=== PATIENT | male | born 1965 | race Caucasian/White ===

== ENCOUNTER 2017-11-04 15:04 | Emergency (ER) | payer OTHER ==
[2017-11-04] MEDS ORDERED: KETOROLAC 30 MG/ML 1 ML VIAL IM STA (16:33)
--- NOTE | 2017-11-04 17:26 | ED ---
General Adult HPI - General Chief complaint: Extremity Problem,Nontraumatic Stated complaint: Left side arm & leg pain Time Seen by Provider: 11/04/17 16:08 Source: patient Mode of arrival: ambulatory Limitations: no limitations - History of Present Illness Initial comments: Saulo Chau is a 51-year-old male who presents to the emergency department today for evaluation of left calf pain. 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 He reports he frequently has aches and pains throughout his body. He reports that this morning he woke in had an aching pain deep in his calf of his left leg, reports he tried walking around and went to work however the pain persisted which prompted him to come to the emergency department for evaluation. Patient believes his mother had a history of blood clots though he is not certain, and he is not certain if she had any clotting disorder. Patient is a current every day smoker. Patient denies any injury to the leg or new exercise or any excessive exertion. He denies any chest pain, shortness of breath or - Related Data Home Medications Medication Instructions Recorded Confirmed No Known Home Medications [No 11/04/17 11/04/17 Known Home Medications] Allergies Allergy/AdvReac Type Severity Reaction Status Date / Time No Known Allergies Allergy Verified 11/04/17 16:19 Review of Systems ROS Statement: Those systems with pertinent positive or pertinent negative responses have been documented in the HPI. ROS Other: All systems not noted in ROS Statement are negative. Past Medical History Past Medical History: Hypertension History of Any Multi-Drug Resistant Organisms: None Reported Past Surgical History: Orthopedic Surgery Past Psychological History: No Psychological Hx Reported Smoking Status: Current every day smoker Past Alcohol Use History: Occasional Past Drug Use History: None Reported General Exam Limitations: no limitations General appearance: alert, in no apparent distress Head exam: Present: atraumatic, normocephalic Eye exam: Present: normal appearance, PERRL ENT exam: Present: normal exam Neck exam: Present: normal inspection Respiratory exam: Present: normal lung sounds bilaterally. Absent: respiratory distress, wheezes, rales, rhonchi, stridor, chest wall tenderness, accessory muscle use, decreased breath sounds, prolonged expiratory Cardiovascular Exam: Present: regular rate, normal heart sounds. Absent: tachycardia, systolic murmur, diastolic murmur GI/Abdominal exam: Present: soft. Absent: distended Rectal exam: Present: deferred Extremities exam: Present: pedal edema, calf tenderness, other (Large varicose veins bilateral lower extremities) Back exam: Present: normal inspection Neurological exam: Present: alert, oriented X3 Psychiatric exam: Present: normal affect, normal mood Skin exam: Present: warm, dry, intact, normal color. Absent: cyanosis Course Vital Signs 11/04/17 11/04/17 15:13 19:09 Temperature 98.1 F 98.5 F Pulse Rate 102 H 98 Respiratory 20 16 Rate Blood Pressure 187/111 168/78 O2 Sat by Pulse 96 100 Oximetry Medical Decision Making - Medical Decision Making patient was seen and evaluated, history was obtained from the patient Patient experiencing cramping pain in his left calf and feels that it may be swollen, patient does have very large varicose veins on this leg and is concerned that he may have a blood clot In addition patient states that he didn't work today he needs a work note Venous Doppler was ordered to evaluate for possible DVT IM Toradol was ordered for discomfort Venous Doppler without evidence of DVT Patient ambulatory throughout the emergency department without any complications or complaints Results of the DVT study were discussed with patient who expresses reliefthat there is no DVT, at this time he is comfortable with the plan for discharge home. I advised the patient to maintain oral hydration, stretching and follow-up with his primary care physician for reevaluation. Patient requesting a work note for tomorrow. Work note was provided and the patient was discharged home in stable condition. Disposition Clinical Impression: Leg cramping Disposition: HOME SELF-CARE Condition: Good Instructions: Leg Cramps (ED), Muscle Cramp (ED) Referrals: Paul Ghosh MD [Primary Care Provider] - 1-2 days Time of Disposition: 18:32
--- NOTE | 2017-11-04 18:07 | US ---
EXAMINATION TYPE: US venous doppler duplex LE BI DATE OF EXAM: 11/04/2017 5:56 PM COMPARISON: NONE CLINICAL HISTORY: Pain. bilateral leg pain SIDE PERFORMED: TECHNIQUE: The lower extremity deep venous system is examined utilizing real time linear array sonog pili with graded compression, doppler sonography and color-flow sonography. VESSELS IMAGED: External Iliac Vein (EIV) Common Femoral Vein Deep Femoral Vein Greater Saphenous Vein * Femoral Vein Popliteal Vein Small Saphenous Vein * Proximal Calf Veins (* superficial vessels) Right Leg: Negative for DVT Left Leg: Negative for DVT Grayscale, color doppler, spectral doppler imaging performed of the deep veins of the bilateral lower extremities. There is normal flow, compressibility, vascular waveforms. IMPRESSION: No evidence of acute DVT in either lower extremity.
[2017-11-04 19:11] VITALS: BP 168/78; PULSE 98; RESP 16; TEMP 98.5
== END 2017-11-04 19:10 | disposition home or self-care (01) ==
LOC: EC 15:04
DX: I83.92 Asymptomatic varicose veins of left lower extremity (principal); F17.200 Nicotine dependence, unspecified, uncomplicated
CPT/HCPCS: 99283; 96372; 93970; J1885

== ENCOUNTER 2017-11-06 12:54 | Inpatient (IN) | payer OTHER ==
[2017-11-06] MEDS ORDERED: SODIUM CHLORIDE 0.9% 1,000 ML IV STA (13:16)
[2017-11-06] MEDS ORDERED: SODIUM CHLORIDE 0.9% 500 ML IV STA (13:21)
--- NOTE | 2017-11-06 13:21 | ED ---
Neuro HPI - General Chief Complaint: Neuro Symptoms/Deficit Stated Complaint: Lt sided weakness Time Seen by Provider: 11/06/17 13:10 Source: patient, family, RN notes reviewed Mode of arrival: wheelchair Limitations: physical limitation - History of Present Illness Is the patient presenting with stroke symptoms?: Yes Last Known Well Date: 11/05/17 Initial Comments: This is a 51-year-old male who presents with complaints of left facial droop and left arm weakness and started sometime last night. Per his friend with him he wanted taken to the hospitalist the patient did not want to go. The patient was seen 3 days ago emergency department and thought to have a DVT which apparently was negative he did has some left leg weakness per the patient. It is unclear when this exactly started. No fevers chills nausea vomiting sweats patient has no prior history of strokes he is a smoker. No trauma is reported. - Related Data Home Medications: Home Medications Medication Instructions Recorded Confirmed Acetaminophen [Tylenol Extra 500 - 1,000 mg PO Q6H PRN 11/06/17 11/06/17 Strength] Allergies/Adverse Reactions: Allergies Allergy/AdvReac Type Severity Reaction Status Date / Time No Known Allergies Allergy Verified 11/06/17 13:15 Review of Systems ROS Statement: Those systems with pertinent positive or pertinent negative responses have been documented in the HPI. ROS Other: All systems not noted in ROS Statement are negative. General Exam - General Exam Comments Initial Comments: This is a well-developed well-nourished awake alert oriented 3 male Limitations: physical limitation General appearance: alert, other (There is obvious left facial asymmetry with forehead sparing.) Head exam: Present: atraumatic, normocephalic. Absent: normal inspection Eye exam: Present: normal appearance, PERRL, EOMI. Absent: scleral icterus, conjunctival injection, periorbital swelling ENT exam: Present: other (As above) Neck exam: Present: normal inspection, full ROM, other (No stridor JVD or bruits ). Absent: tenderness, meningismus, lymphadenopathy Respiratory exam: Present: normal lung sounds bilaterally. Absent: respiratory distress, wheezes, rales, rhonchi, stridor Cardiovascular Exam: Present: normal rhythm, tachycardia, normal heart sounds. Absent: systolic murmur, diastolic murmur, rubs, gallop, clicks GI/Abdominal exam: Present: soft, normal bowel sounds. Absent: distended, tenderness, guarding, rebound, rigid Rectal exam: Present: deferred Extremities exam: Present: normal capillary refill, other (Left upper extremity is flaccid patient is able move the left lower extremity that is weaker than the right). Absent: full ROM Back exam: Present: normal inspection Neurological exam: Present: alert, oriented X3, motor sensory deficit. Absent: CN II-XII intact Psychiatric exam: Present: normal affect, normal mood Skin exam: Present: warm, dry, intact, normal color. Absent: rash Stroke MDM - Lab Data Result diagrams: 11/06/17 13:11 11/06/17 13:11 Lab Results 11/06/17 11/06/17 11/06/17 Range/Units 13:11 13:11 13:11 WBC 7.2 (3.8-10.6) k/uL RBC 5.49 (4.30-5.90) m/uL Hgb 16.9 (13.0-17.5) gm/dL Hct 51.8 (39.0-53.0) % MCV 94.3 (80.0-100.0) fL MCH 30.7 (25.0-35.0) pg MCHC 32.6 (31.0-37.0) g/dL RDW 12.9 (11.5-15.5) % Plt Count 261 (150-450) k/uL Neutrophils % 69 % Lymphocytes % 19 % Monocytes % 7 % Eosinophils % 1 % Basophils % 1 % Neutrophils # 4.9 (1.3-7.7) k/uL Lymphocytes # 1.3 (1.0-4.8) k/uL Monocytes # 0.5 (0-1.0) k/uL Eosinophils # 0.1 (0-0.7) k/uL Basophils # 0.1 (0-0.2) k/uL PT (9.0-12.0) sec INR (<1.2) APTT (22.0-30.0) sec Sodium 137 (137-145) mmol/L Potassium 4.8 (3.5-5.1) mmol/L Chloride 99 (98-107) mmol/L Carbon Dioxide 26 (22-30) mmol/L Anion Gap 12 mmol/L BUN 13 (9-20) mg/dL Creatinine 0.98 (0.66-1.25) mg/dL Est GFR (MDRD) Af Amer >60 (>60 ml/min/1.73 sqM) Est GFR (MDRD) Non-Af >60 (>60 ml/min/1.73 sqM) Glucose 101 H (74-99) mg/dL POC Glucose (mg/dL) (75-99) mg/dL POC Glu Environmental Adviser ID Calcium 10.6 H (8.4-10.2) mg/dL Total Bilirubin 1.1 (0.2-1.3) mg/dL AST 35 (17-59) U/L ALT 39 (21-72) U/L Alkaline Phosphatase 81 (38-126) U/L Total Creatine Kinase 427 H (55-170) U/L CK-MB (CK-2) 2.6 H* (0.0-2.4) ng/mL CK-MB (CK-2) Rel Index 0.6 Troponin I <0.012 (0.000-0.034) ng/mL Total Protein 7.6 (6.3-8.2) g/dL Albumin 4.8 (3.5-5.0) g/dL 11/06/17 11/06/17 Range/Units 13:11 13:26 WBC (3.8-10.6) k/uL RBC (4.30-5.90) m/uL Hgb (13.0-17.5) gm/dL Hct (39.0-53.0) % MCV (80.0-100.0) fL MCH (25.0-35.0) pg MCHC (31.0-37.0) g/dL RDW (11.5-15.5) % Plt Count (150-450) k/uL Neutrophils % % Lymphocytes % % Monocytes % % Eosinophils % % Basophils % % Neutrophils # (1.3-7.7) k/uL Lymphocytes # (1.0-4.8) k/uL Monocytes # (0-1.0) k/uL Eosinophils # (0-0.7) k/uL Basophils # (0-0.2) k/uL PT 10.5 (9.0-12.0) sec INR 1.1 (<1.2) APTT 25.1 (22.0-30.0) sec Sodium (137-145) mmol/L Potassium (3.5-5.1) mmol/L Chloride (98-107) mmol/L Carbon Dioxide (22-30) mmol/L Anion Gap mmol/L BUN (9-20) mg/dL Creatinine (0.66-1.25) mg/dL Est GFR (MDRD) Af Amer (>60 ml/min/1.73 sqM) Est GFR (MDRD) Non-Af (>60 ml/min/1.73 sqM) Glucose (74-99) mg/dL POC Glucose (mg/dL) 96 (75-99) mg/dL POC Glu Environmental Adviser ID Carmen Reagan Calcium (8.4-10.2) mg/dL Total Bilirubin (0.2-1.3) mg/dL AST (17-59) U/L ALT (21-72) U/L Alkaline Phosphatase (38-126) U/L Total Creatine Kinase (55-170) U/L CK-MB (CK-2) (0.0-2.4) ng/mL CK-MB (CK-2) Rel Index Troponin I (0.000-0.034) ng/mL Total Protein (6.3-8.2) g/dL Albumin (3.5-5.0) g/dL - NIH Stroke Scale 1a. Level of Consciousness: (0) alert 1b. LOC Questions: (0) answers correctly 1c. LOC Commands: (0) performs tasks correctly 2. Best Gaze: (0) normal 3. Visual: (0) no visual loss 4. Facial Palsy: (2) partial paralysis 5a. Motor Arm Left: (4) no movement 5b. Motor Arm Right: (0) no drift 6a. Motor Leg Left: (2) some gravity effort 6b. Motor Leg Right: (0) no drift 7. Limb Ataxia: (0) absent 8. Sensory: (0) normal 9. Best Language: (0) no aphasia 11. Extinction/Inattention: (0) no abnormality - Thrombolytic Inclusion/Exclusion Thrombolytic Exclusion Criteria: Symptom Onset > 3 Hours - Medical Decision Making I did reevaluate patient several occasions he demonstrates no improvement further deficits. I did discuss the case with Dr. Whitehead who is covering Dr. Ghosh. The patient will be admitted for evaluation by neurology. - EKG Data -: EKG Interpreted by [facility] EKG shows normal: sinus rhythm (Sinus tachycardia rate 114. Interval 160 QRS of 86 daily since QTC 332/457 possible left atrial enlargement.) Past Medical History Past Medical History: Hypertension History of Any Multi-Drug Resistant Organisms: None Reported Past Surgical History: Orthopedic Surgery Past Psychological History: No Psychological Hx Reported Smoking Status: Current every day smoker Past Alcohol Use History: Occasional Past Drug Use History: None Reported Course Vital Signs 11/06/17 11/06/17 11/06/17 13:00 13:10 13:25 Temperature 98.1 F Pulse Rate 130 H 102 H 102 H Respiratory 20 16 16 Rate Blood Pressure 200/117 165/112 191/114 O2 Sat by Pulse 99 95 95 Oximetry 11/06/17 11/06/17 11/06/17 13:40 13:55 14:25 Temperature Pulse Rate 100 90 84 Respiratory 16 16 16 Rate Blood Pressure 169/98 156/101 169/104 O2 Sat by Pulse 100 98 98 Oximetry 11/06/17 11/06/17 11/06/17 14:55 15:25 16:01 Temperature Pulse Rate 82 80 82 Respiratory 16 16 16 Rate Blood Pressure 149/99 158/100 167/104 O2 Sat by Pulse 98 97 97 Oximetry - Reevaluation(s) Reevaluation #1: 11/06/17 16:13 Reevaluation the patient return from CAT scan revealed no change in his status. He still is awake alert oriented 3 no improvement in his function. Critical Care Time Critical Care Time: Yes Critical Care Time: 31 minutes includes initial presentation with history physical labs x-rays review of old charting several reevaluation the patient. Discussed with the patient family regarding findings discussed with the main physician admission orders and documentation of the above. Disposition Clinical Impression: Cerebrovascular accident Disposition: ADMITTED IP TO THIS [facility] Condition: Stable Referrals: Paul Ghosh MD [Primary Care Provider] - 1-2 days
[2017-11-06 13:27] LABS: Glucose,Whole Blood 96 mg/dL (75-99)
[2017-11-06 13:41] LABS: Basophils # (A) 0.1 k/uL (0-0.2); Basophils % (A) 1 %; Eosinophils # (A) 0.1 k/uL (0-0.7); Eosinophils % (A) 1 %; HCT 51.8 % (39.0-53.0); HGB 16.9 gm/dL (13.0-17.5); Lymphocytes # (A) 1.3 k/uL (1.0-4.8); Lymphocytes % (A) 19 %; MCH 30.7 pg (25.0-35.0); MCHC 32.6 g/dL (31.0-37.0); MCV 94.3 fL (80.0-100.0); Mean Platelet Volume 7.4; Monocytes # (A) 0.5 k/uL (0-1.0); Monocytes % (A) 7 %; Neutrophils # (A) 4.9 k/uL (1.3-7.7); Neutrophils % (A) 69 %; Platelet Count 261 k/uL (150-450); RBC 5.49 m/uL (4.30-5.90); RDW 12.9 % (11.5-15.5); WBC 7.2 k/uL (3.8-10.6)
[2017-11-06 13:46] LABS: INR 1.1 (<1.2); Partial Thromboplastin Time 25.1 sec (22.0-30.0); Prothrombin Time 10.5 sec (9.0-12.0)
[2017-11-06 13:47] LABS: ALT 39 U/L (21-72); AST 35 U/L (17-59); Albumin 4.8 g/dL (3.5-5.0); Alkaline Phosphatase 81 U/L (38-126); Anion Gap 12 mmol/L; Blood Urea Nitrogen 13 mg/dL (9-20); Calcium 10.6 mg/dL (8.4-10.2); Carbon Dioxide 26 mmol/L (22-30); Chloride 99 mmol/L (98-107); Glucose 101 mg/dL (74-99); Potassium 4.8 mmol/L (3.5-5.1); Sodium 137 mmol/L (137-145); Total Bilirubin 1.1 mg/dL (0.2-1.3); Total Protein 7.6 g/dL (6.3-8.2)
--- NOTE | 2017-11-06 13:51 | CT ---
EXAMINATION TYPE: CT brain wo con DATE OF EXAM: 11/06/2017 COMPARISON: NONE HISTORY: Lt side weakness CT DLP: 1036 mGycm Automated exposure control for dose reduction was used. FINDINGS: There is a area of lucency appearing 12 mm in the right thalamus. This may be an evolving infarct. No other focal lesions are seen. There is no mass effect, midline shift or intracranial blood. The orbits are normal. Visualized portions of the paranasal sinuses and mastoids are clear. IMPRESSION: PROBABLE SUBACUTE RIGHT THALAMIC INFARCT. SHORT-TERM FOLLOW-UP WOULD BE RECOMMENDED.
--- NOTE | 2017-11-06 13:52 | XR ---
EXAMINATION TYPE: XR chest 2V DATE OF EXAM: 11/06/2017 HISTORY: altered mental status. REFERENCE: Previous study dated 04/16/2015. FINDINGS: Lung volumes are prominent. The lungs are clear. Pleural spaces are clear. The heart is not enlarged. IMPRESSION: PLEASE CORRELATE FOR COPD.
[2017-11-06 14:05] LABS: Creatine Kinase 427 U/L (55-170)
[2017-11-06 14:17] LABS: Creatine Kinase MB 2.6 ng/mL (0.0-2.4); Troponin I <0.012 ng/mL (0.000-0.034)
[2017-11-06] MEDS ORDERED: ASPIRIN 325 MG TAB PO STA (16:25)
[2017-11-06] MEDS ORDERED: NICOTINE 21MG/24HR PATCH TRANSDERM STA (16:27)
[2017-11-06] MEDS ORDERED: SODIUM CHLORIDE 0.9% 1,000 ML IV SCH (16:30)
[2017-11-06] MEDS ORDERED: cloNIDine HCL 0.1 MG TAB PO STA (17:09)
--- NOTE | 2017-11-06 20:08 | P.HPIM ---
History of Present Illness Chief complaint Left-sided weakness History of present illness The patient is a 51 year old patient of Dr. Ghosh for whom I am covering. The patient presented today to the emergency room earlier today with complaints of left facial left arm and left leg weakness. Patient states that on , 2 days previous he noted numbness and tingling in his left foot also associated with some pain and weakness. Apparently that weakness progressed yesterday. Then yesterday he noticed left arm being numb and weak along with left facial weakness and was brought to the emergency room apparently by a friend. The patient denies any recent trauma or head injury. States he's never had symptoms like this in the past. States other than and what was mentioned that he generally has been feeling good. He does admit to drinking about 12 beers a day. Patient also has history of smoking. He also states there is a history of hypertension but he has run out of his medications. Apparently he did see Dr. Ghosh last year for a physical. Past medical history As mentioned above there appears to be a history of hypertension but patient has run out of his medications. Apparently he has had fractures of his ankles in the past that have been repaired. No known ALLERGIES He is not taking any regular medications and uses extra strength Tylenol for pain. Review of systems Patient denies any visual changes or headaches. No fever or chills or cough. No chest pain. No nausea or vomiting. No urinary or bowel symptoms. No hematuria or hematochezia. No unusual edema. Social history Patient does smoke 1-1/2 packs per day for many years. States he also drinks about 12 beers a day. Apparently he had a beer yesterday but not today. States he has never had shakes or tremors when stopping alcohol. 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 Family history Apparently mother of stroke and heart attack in her 80s. He states his father is still alive but he has not seen him much. States he has a sister that had coronary artery bypass. Physical examination Patient is in the emergency room lying on the stretcher. Easily arousable and pleasant. Does not appear to be in any acute distress. Temperature was 98. Pulse was 76 with respirations 16 and blood pressure 147/ 99. O2 saturation was 97 on 2 L nasal cannula. Head and neck exam revealed it to be atraumatic. Neck supple. Extraocular movements were intact. Neck is supple without carotid bruits or adenopathy or thyromegaly detected. Lungs are clear to auscultation. Heart tones were regular without murmurs or rubs appreciated. Abdomen is soft. Nontender. No organomegaly. No masses. Scrotal and rectal exam deferred. Neurologic exam reveals him to be alert and pleasant. He does have left facial weakness. He does have a very slight content analyst on the left but markedly diminished. Also weakness in extensors of the upper extremities. Lower extremities he is able to lift his leg off the bed but dorsi and plantarflexion of the foot are both extremely weak. Laboratory White count 7.2 with a hemoglobin 16.9 and a platelet count of 261 INR is 1.1 with a PTT of 25 Sodium 137 with a potassium 4.8 CO2 content of 26. Blood sugar 101 Calcium was 10.6. CK was elevated at 427 with a CK-MB of 2.6. Troponin though was less than 0.012. Albumin 4.8 EKG showed a sinus tachycardia. No definite ischemic changes noted. Possible left atrial enlargement. Chest x-ray showed some prominent lung volumes consistent with COPD but no other acute changes. Computed tomography scan of the brain without contrast showed an area of lucency a little over 1 cm in the right thalamus. Likely a subacute right thalamic infarct. Impressions 1. Acute CVA with right thalamic subacute infarct. Associated with left sided hemiplegia. No evidence of hemorrhage. 2. Possible history of hypertension with patient noncompliant with medications. 3. Possible rhabdomyolysis with elevated CK values. 4. Tobacco use disorder 5. Alcohol use disorder Plans Patient will be started on aspirin for antiplatelet therapy. He is to be monitored and blood pressure to be controlled. Bedside swallowing evaluation to be done. Consultation with neurology. Patient to have lipid panel performed tomorrow morning. Carotid vascular studies and echocardiogram. Physical and occupational therapy consultations. Further recommendations and treatment pending clinical response and results of above. Follow-up CPK values. Benzodiazepines available for possible development of DTs. Use of nicotine transdermal patches. Smoking cessation and alcohol cessation encouraged. Past Medical History Past Medical History: Hypertension History of Any Multi-Drug Resistant Organisms: None Reported Past Surgical History: Orthopedic Surgery Past Psychological History: No Psychological Hx Reported Smoking Status: Current every day smoker Past Alcohol Use History: Occasional Past Drug Use History: None Reported Medications and Allergies Home Medications Medication Instructions Recorded Confirmed Type Acetaminophen [Tylenol Extra 500 - 1,000 mg PO Q6H PRN 11/06/17 11/06/17 History Strength] Allergies Allergy/AdvReac Type Severity Reaction Status Date / Time No Known Allergies Allergy Verified 11/06/17 13:15 Physical Exam Vitals: Vital Signs Temp Pulse Resp BP Pulse Ox 11/06/17 18:22 76 16 147/99 97 11/06/17 17:50 78 16 159/101 98 11/06/17 16:55 76 16 156/98 98 11/06/17 16:01 82 16 167/104 97 11/06/17 15:55 82 16 167/104 97 11/06/17 15:25 80 16 158/100 97 11/06/17 14:55 82 16 149/99 98 11/06/17 14:25 84 16 169/104 98 11/06/17 13:55 90 16 156/101 98 11/06/17 13:40 100 16 169/98 100 11/06/17 13:25 102 H 16 191/114 95 11/06/17 13:10 102 H 16 165/112 95 11/06/17 13:00 98.1 F 130 H 20 200/117 99 Intake and Output 11/06/17 11/06/17 11/06/17 06:59 14:59 22:59 Other: Weight 74.843 kg Patient Weight 11/07/17 06:59 Weight 74.843 kg Results CBC & Chem 7: 11/06/17 13:11 11/06/17 13:11 Labs: Abnormal Lab Results - Last 24 Hours (Table) 11/06/17 11/06/17 Range/Units 13:11 13:11 Glucose 101 H (74-99) mg/dL Calcium 10.6 H (8.4-10.2) mg/dL Total Creatine Kinase 427 H (55-170) U/L CK-MB (CK-2) 2.6 H* (0.0-2.4) ng/mL
[2017-11-06] MEDS ORDERED: LORazepam 0.5 MG TAB PO PRN (20:45)
[2017-11-06] MEDS ORDERED: ACETAMINOPHEN TAB 325 MG TAB PO PRN (20:47)
[2017-11-06] MEDS: SODIUM CHLORIDE 0.9% 1,000 ML IV SCH (21:10)
[2017-11-06 21:23] VITALS: BMI 21.4
[2017-11-07 07:31] LABS: Anion Gap 10 mmol/L; Blood Urea Nitrogen 14 mg/dL (9-20); Calcium 9.8 mg/dL (8.4-10.2); Carbon Dioxide 28 mmol/L (22-30); Chloride 101 mmol/L (98-107); Cholesterol 216 mg/dL (<200); Creatine Kinase 258 U/L (55-170); Glucose 88 mg/dL (74-99); HDL Cholesterol 47 mg/dL (40-60); LDL Cholesterol,Calculated 134 mg/dL (0-99); Potassium 4.6 mmol/L (3.5-5.1); Sodium 139 mmol/L (137-145); Triglycerides 177 mg/dL (<150)
[2017-11-07] MEDS: ASPIRIN 325 MG TAB PO SCH (08:25)
--- NOTE | 2017-11-07 10:24 | P.PN ---
Progress Note - Text The patient is a 51-year-old patient of Dr. Ghosh for whom I am covering and who presented yesterday to the emergency room with left-sided weakness. Patient was found on CAT scan to have a right thalamic infarct. The patient did admit on presentation that he was not taking his blood pressure medication as previously ordered by Dr. Ghosh. The patient is sitting up in bed. Alert. Pleasant in no acute distress. Denies any unusual pain. Vital signs reveal a temperature of 97.1 with a pulse of 81 and respirations 16. Blood pressure is 149/98 and he is 96% saturated on room air. Lung and heart examination is clear and regular. Abdomen is nontender. No unusual edema. 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 Laboratory Basic metabolic panel is essentially unremarkable. CK value is 258 which is improved from admission. Total cholesterol was 216 with a LDL cholesterol 134 and triglycerides of 177 and HDL of 47 Impressions Acute CVA of the right thalamus with left-sided hemiplegia. The patient does have relative high use of alcohol but is not demonstrating any definite signs of DTs at this time. Plans Patient will be evaluated by neurology. Consultation with physical and occupational therapy. Carotid Doppler and echocardiogram to also be done. Continue with aspirin therapy. We will begin atorvastatin. Dr. Ghosh to resume care tomorrow.
--- NOTE | 2017-11-07 11:18 | US ---
EXAMINATION TYPE: US carotid duplex BILAT DATE OF EXAM: 11/07/2017 COMPARISON: NONE CLINICAL HISTORY: CVA, with left side hemiplegia.. EXAM MEASUREMENTS: RIGHT: Peak Systolic Velocity (PSV) cm/sec ----- Right CCA: 66.9 ----- Right ICA: 80.1 ----- Right ECA: 87.8 ICA/CCA ratio: 1.2 RIGHT: End Diastole cm/sec ----- Right CCA: 20.8 ----- Right ICA: 34.0 ----- Right ECA: 15.3 LEFT: Peak Systolic Velocity (PSV) cm/sec ----- Left CCA: 79.0 ----- Left ICA: 64.7 ----- Left ECA: 81.2 ICA/CCA ratio: 0.8 LEFT: End Diastole cm/sec ----- Left CCA: 26.3 ----- Left ICA: 23.0 ----- Left ECA: 14.2 VERTEBRALS (direction of flow): Right Vertebral: Antegrade Left Vertebral: Antegrade Rhythm: Normal No significant stenosis seen, mild bilateral plaque noted. IMPRESSION: I DO NOT SEE EVIDENCE OF A HEMODYNAMICALLY SIGNIFICANT STENOSIS IN EITHER CAROTID SYSTEM. Criteria for Assigning % of Stenosis / Diameter reduction (Estimation based on the indirect measurements of the internal carotid artery velocities (ICA PSV). 1. Normal (no stenosis)=ICA PSV < 125 cm/s: ratio < 2.0: ICA EDV<40 cm/s. 2. Less than 50% stenosis=ICA PSV < 125 cm/s: ratio < 2.0: ICA EDV<40 cm/s. 3. 50 to 69% stenosis=ICA PSV of 125 to 230 cm/s: ration 2.0 ? 4.0: ICA EDV 40-100 cm/s. 4. Greater than 70% stenosis to near occlusion= ICA PSV > 230 cm/s: ratio > 4.0: ICA EDV > 100 cm/s. 5. Near occlusion= ICA PSV velocities may be low or undetectable: variable ratio and ICA EDV. 6. Total occlusion=unable to detect flow.
[2017-11-07 11:59] LABS: Glucose,Whole Blood 96 mg/dL (75-99)
--- NOTE | 2017-11-07 12:50 | P.CNNES ---
History of Present Illness Consult date: 11/07/17 History of Present Illness: The patient is a 51-year-old right-handed white male who states that morning he went to work and started getting lightheaded. His left leg felt weak. He developed pain in the left calf and sole of the foot region. He thought he may have had a blood clot. His boss drove him to the emergency room. He was evaluated at [facility] emergency room for cramping pain in the left leg. He had a venous Doppler of both legs which did not demonstrate any clot. He reported at that time that when he tried walking around the pain persisted which prompted him to go to the ER. He was released from the ER with clinical impression of leg cramps and referred to see his primary care physician within 1-2 days. The patient reports that the following day he felt sometime in the afternoon his left arm became paralyzed. Initially the patient reported that he woke up on Wednesday morning with the left arm paralysis but later states he thinks it may been around 5 PM. He was still able to walk on his left leg but thinks it may have gotten weaker.. He states he did not go to the emergency room but that his brother said that if it didn't get better by morning he would take him to the ER. According to the ER record the patient refused to go to the emergency room on Wednesday night. Wednesday morning the left arm was still paralyzed. He was able to walk on his leg but it was weak still on the left. He denied any sensory symptoms. He denied any speech disturbance. He denied any visual changes. He denied any headache. He denied any problems on the right side of his body. He states he was not aware about his face which is obviously drooping on the left. When he presented to the emergency room on he complained of left facial droop left arm weakness Which started the night before. apparently the patient had refused to go to the hospital tonight before. the onset of symptoms was unclear he was not a candidate for thrombolytic therapy due to onset of symptoms greater than 3 hours. He was admitted to the hospital with stroke. He had a CAT scan of the brain in the emergency room on 11/06/2017 which showed a lucency in the right thalamus. He had a carotid ultrasound on 11/07/2017 which showed no evidence of stenosis. States he smokes about half a pack of cigarettes a day and has been doing so since the age of 15. He has hypertension but stopped taking his medications about 2 months ago because he ran out. He reports that he last saw his primary care physician about 2 years ago. He drinks 6 pack or 12 pack of beer a day. Review of Systems Eyes: denies blurred vision, denies pain Cardiovascular: Denies chest pain, Denies shortness of breath Respiratory: Denies cough Musculoskeletal: Denies myalgias Neurological: Denies numbness, Denies weakness Psychiatric: Denies anxiety, Denies depression Past Medical History Past Medical History: Hypertension History of Any Multi-Drug Resistant Organisms: None Reported Past Surgical History: Orthopedic Surgery Additional Past Surgical History / Comment(s): bilateral ankle surgery Past Anesthesia/Blood Transfusion Reactions: No Reported Reaction Past Psychological History: No Psychological Hx Reported Smoking Status: Current every day smoker Past Alcohol Use History: Abuse Additional Past Alcohol Use History / Comment(s): 8 drinks every other day Past Drug Use History: None Reported - Past Family History Mother Family Medical History: CVA/TIA Medications and Allergies Home Medications Medication Instructions Recorded Confirmed Type Acetaminophen [Tylenol Extra 500 - 1,000 mg PO Q6H PRN 11/06/17 11/06/17 History Strength] Allergies Allergy/AdvReac Type Severity Reaction Status Date / Time No Known Allergies Allergy Verified 11/06/17 13:15 Physical Examination - Vital Signs Vital Signs: Vital Signs Temp Pulse Pulse Resp BP BP Pulse Ox 11/07/17 08:00 97.1 F L 81 16 149/98 96 11/07/17 04:00 97.0 F L 83 18 146/94 95 11/07/17 00:00 97.4 F L 82 18 141/85 95 11/06/17 21:18 97.0 F L 70 18 150/97 97 11/06/17 20:40 97.0 F L 70 18 150/97 97 11/06/17 20:13 97.3 F L 76 20 145/91 96 11/06/17 18:22 76 16 147/99 97 11/06/17 17:50 78 16 159/101 98 11/06/17 16:55 76 16 156/98 98 11/06/17 16:01 82 16 167/104 97 11/06/17 15:55 82 16 167/104 97 11/06/17 15:25 80 16 158/100 97 11/06/17 14:55 82 16 149/99 98 11/06/17 14:25 84 16 169/104 98 11/06/17 13:55 90 16 156/101 98 11/06/17 13:40 100 16 169/98 100 11/06/17 13:25 102 H 16 191/114 95 11/06/17 13:10 102 H 16 165/112 95 11/06/17 13:00 98.1 F 130 H 20 200/117 99 Intake and Output 11/06/17 11/07/17 11/07/17 22:59 06:59 14:59 Intake Total 650 Output Total 150 Balance 650 -150 Intake: Amount of Fluid Infused ( 650 ml) Output: Urine 150 Other: Weight 65.8 kg 65.8 kg - Constitutional General appearance: average body habitus, cooperative - EENT EENT: PERRL, hearing intact, vision intact - Respiratory Respiratory: chest non-tender, lungs clear - Neurologic Mental status he was awake alert and oriented 3 her speech was fluent there was no a aphasia or dysarthria Cranial nerve examination: PERRL, EOMI, tongue midline, facial droop (Left upper motor neuron facial paralysis) Speech examination: intact Sensorimotor examination: intact Detailed motor examination: other (Right upper extremity 5 over 5 right lower extremity 5 out of 5 left upper extremity flaccid paralysis left lower extremity able to lift leg up against gravity) Reflexes: 2+: knee - Psychiatric Psychiatric: mood/affect appropriate Results - Laboratory Findings CBC and BMP: 11/06/17 13:11 11/07/17 06:19 Abnormal Lab Findings: Abnormal Labs 11/06/17 11/06/17 11/07/17 13:11 13:11 06:19 Glucose 101 H Calcium 10.6 H Creatine Kinase 258 H Total Creatine Kinase 427 H CK-MB (CK-2) 2.6 H* Triglycerides 177 H Cholesterol 216 H LDL Cholesterol, Calc 134 H Assessment and Plan (1) Right-sided lacunar stroke Current Visit: Yes Status: Acute SNOMED Code(s): 639873763 Plan: The patient is a 51-year-old man who presents to the hospital with left-sided weakness. On neurologic examination he has a left upper motor neuron facial paralysis left arm is flaccid plegic and left leg is weak 2/5. His CAT scan of the brain showed a lucency in the right thalamus. Recommend MRI scan of the brain. His carotid ultrasound did not show evidence of stenosis. Echocardiogram is pending. Patient has been placed on aspirin. He was advised to stop smoking. His risk factors for stroke include hypertension and smoking. Recommend physical therapy occupational therapy
[2017-11-07 16:43] LABS: Glucose,Whole Blood 134 mg/dL (75-99)
[2017-11-07] MEDS: SODIUM CHLORIDE 0.9% 1,000 ML IV SCH (17:08)
[2017-11-08] MEDS: ASPIRIN 325 MG TAB PO SCH (08:27)
[2017-11-08] MEDS: ATORVASTATIN 40 MG TAB PO SCH (08:28)
--- NOTE | 2017-11-08 10:20 | ECHOF ---
Referral Reason:CVA MEASUREMENTS -------- HEIGHT: 175.3 cm WEIGHT: 65.8 kg BP: 120/50 RVIDd: 3.4 cm (< 3.3) IVSd: 1.1 cm (0.6 - 1.1) LVIDd: 4.3 cm (3.9 - 5.3) LVPWd: 1.1 cm (0.6 - 1.1) IVSs: 1.5 cm LVIDs: 2.9 cm LVPWs: 1.6 cm LA Diam: 2.8 cm (2.7 - 3.8) LAESV Index (A-L): 44.09 ml/m Ao Diam: 4.1 cm (2.0 - 3.7) AV Cusp: 1.4 cm (1.5 - 2.6) LA Diam: 4.3 cm (2.7 - 3.8) MV EXCURSION: 18.048 mm (> 18.000) MV EF SLOPE: 69 mm/s (70 - 150) EPSS: 1.7 cm MV E Luis: 0.58 m/s MV DecT: 221 ms MV A Luis: 1.02 m/s MV E/A Ratio: 0.57 RAP: 5.00 mmHg RVSP: 21.14 mmHg FINDINGS -------- Sinus rhythm. This was a technically good study. The left ventricular size is normal. There is borderline concentric left ventricular hypertrophy. Overall left ventricular systolic function is normal with, an EF between 55 - 60 %. The right ventricle is normal in size. LA is severely dilated >40 ml/m2 The right atrial size is normal. There is mild aortic valve sclerosis. Mild mitral annular calcification present. Mild mitral regurgitation is present. Mild tricuspid regurgitation present. There is no evidence of pulmonary hypertension. The right v entricular systolic pressure, as measured by Doppler, is 21.14mmHg. Trace/mild (physiologic) pulmonic regurgitation. Aortic Root is mildly measures 4.1cm. There is no pericardial effusion. CONCLUSIONS -------- 1. Sinus rhythm. 2. This was a technically good study. 3. The left ventricular size is normal. 4. There is borderline concentric left ventricular hypertrophy. 5. LA is severely dilated >40 ml/m2 6. There is mild aortic valve sclerosis. 7. Mild mitral annular calcification present. 8. Mild mitral regurgitation is present. 9. Mild tricuspid regurgitation present. 10. There is no evidence of pulmonary hypertension. 11. Trace/mild (physiologic) pulmonic regurgitation. 12. Aortic Root is mildly measures 4.1cm. 13. There is no pericardial effusion. THERAPEUTIC ASSISTANT: Clara Alcantara RDCS
[2017-11-08] MEDS ORDERED: ACETAMINOPHEN TAB 325 MG TAB PO PRN (12:55)
--- NOTE | 2017-11-08 15:00 | MR ---
EXAMINATION TYPE: MR brain wo con DATE OF EXAM: 11/08/2017 COMPARISON: CT brain 11/06/2017 HISTORY: Left sided weakness, stroke CONTRAST: Performed utilizing 0 mL intravenous Gadavist gadolinium contrast. TECHNIQUE: Multiplanar, multiecho imaging on a 3.0 Adelina magnet is performed through the brain. Stud y is not performed within 24 hours of arrival to the hospital. The craniovertebral junction is normal. The pituitary is normal. Diffusion-weighted imaging is performed. There is an oval area of increased signal on diffusion-weig hted imaging within the posterior limb internal capsule right basal ganglion compatible with an acute infarct. This is acute. There are some patchy periventricular white matter changes which can be compatible with microvascular ischemic change. Other etiologies are not excluded. Ventricles and sulci are appropriate for the patient age. IMPRESSIONS: 1. Acute posterior internal capsule limb right basal ganglion compatible with an acute ischemic area. Correlate with the patient's symptoms.
--- NOTE | 2017-11-08 18:03 | PN ---
PROGRESS NOTE DATE OF SERVICE: 11/08/2017. ALLERGIES: None known. DATA: 5 feet 9 inches. 66 kg. BSA 1.80 m2. BMI 21.5 kg/m2. HISTORY AND CHIEF COMPLAINT: The patient was admitted by Dr. Reynoso after he was presented to the emergency room on the 06 November 2017. The patient had, at that time, numbness of his left shoulder and the left arm and his left leg as well and slight changes of facial drooping as well as deviation to the right side. He was admitted to the hospital on the by Dr. Prdaeep Reynoso MD, with the underlying impression of right CVA with left hemiparesis with the underlying possible rhabdomyolysis with elevated CPK. He has alcohol use disorder and tobacco use disorder. He was admitted with acute CVA with the right thalamic subacute infarction, left-sided hemiplegia, which affects the limb of the internal capsule. Also hypertension with noncompliant to medication with left-sided hemiplegia by the CT scan. Subsequently, he consulted Dr. Billy Jin, neurologist, for followup and evaluation. Today I did see him for the first time. The patient, Mr. Chavez who was last time seen in our office June 04, 2015, and at that time he was complaining of hypertension which was not controlled. He has a chronic smoker with COPD as well as he has been placed on medication. The patient never returned back and he never saw him since discontinuation of the visit until this progress note on 11/08/17. At that time he had a diagnosis of malignant essential hypertension and COPD abuse of alcohol with the continuous drinking behavior. He has a tobacco disorder and he is noncompliant. We did, at that time in 2014, discuss with him the compliance with the treatment and medication, should be returning back for office visit. He was started on lisinopril and amlodipine and the patient never returned back, supposed to be seen in 2 weeks in May. At that time he was taking Lisinopril 10 mg twice a day, and amlodipine 5 mg at bedtime. The patient appeared to the emergency room, he was working at [employer]. He stated when I asked him today on his history, he felt numbness in his leg and arm. He came on to the emergency room at [facility] and at that time they thought that he may have a blood clot or DVT. They did the ultrasound which was negative and subsequently patient was sent back home. The following day he started to have the numbness again and tingling of the shoulder. His brother who lives with him, he brought him to the emergency room on the and at that time he was admitted with complete stroke. While in the hospital he had a echocardiogram. It was read by Dr. Russell with a normal ejection fraction but he had enlarged left atrium and that makes me suspicious of probably some appendices of the left atrium and some clots. I did request today the DICKSON to clarify the issue of the blood clots could be traveling to the brain and affecting the right internal capsule. His carotid duplex study was negative bilaterally with no hemodynamically significant stenosis. The patient was seen. He stated that he did not come to see me, not because of insurance or any other reason, he felt that he does not need to see the doctor, despite that we stressed on him that he has other medical problems that need to be corrected. The patient was seen by Dr. Sherri Jin. She did order MRI and she found by the MRI acute posterior internal capsule limb right basal ganglia, compatible with acute ischemia. That will define the diagnosis as clear, he had it today. We requested the consultation with Cardiology and a DICKSON and echocardiography for evaluation of any clots in the appendices of the left atrium. On reviewing the laboratories, we looked at his previous labs. His white count was 7.2 on admission, hemoglobin 16.9 with hematocrit 51.8, and apparently coagulopathy was normal with a PT 10.5 and INR 1.1 and the PTT 25.1. His sodium on admission was 137, potassium 4.8. Normal kidney function or renal function with the estimated glomerular filtration rate more than 60 as the patient is a white . Calcium was 10.6, however, the repeat of the BMP indicating he has dropped the calcium to 9.6 with hydration and his sodium was 139, and estimated glomerular filtration rate was more than 60, potassium 4.6. His CK was elevated at 427 and today is down to 258 yesterday and CK MB 2.6, and his cardiac enzyme was normal and his lipid profile indicating triglycerides 177, total cholesterol was 216, LDL 134, HDL 47. EXAMINATION: Today, his temperature is 97.7, pulse rate was 73 and respiratory rate was 18. His blood pressure was fluctuating between 146/94, today 137/99 with a mean blood pressure of 111. His oxygen saturation was 98%. His chest x-ray was indicating hyperinflation with a probable COPD, as he is a smoker more than a pack per day for more than 40 years. On the physical examination, HEENT head was normocephalic and atraumatic. Pupil was reactive. He had facial deviation to the right side and flatness on the left side. He has significant left arm weakness and has to use his right arm to lift his left arm. He has numbness and still left lower extremity with issues. The chest was clear to auscultation and percussion with hyperinflation. PMI outside the 5th midclavicular line with mild cardiomegaly. The abdomen was soft, nontender, positive bowel sounds. Extremities, no edema and positive pulses; however, he has weakness of the left lower extremity. ASSESSMENT: 1. Acute cerebrovascular accident involving the right sided internal limb of internal capsule, affecting the left side with the left hemiplegia with the flaccid paralysis on the left upper arm, however, the left leg is weak, which is deeper in the internal capsule. 2. History of hypertension and hypertensive heart disease. 3. Left atrial enlargement and possibility of DICKSON for evaluation of any blood clots or may have atrial paroxysmal fibrillation. Patient currently on the anticoagulation. We will be on asking Cardiology for DICKSON and evaluation. 4. Underlying alcohol abuse and chronic tobacco use. PLAN: At this time, we will be as mentioned above, consulting with Cardiology with the possibility of DICKSON and continue the care. Consultation with rehabilitation, Dr. Randall, in the future for further rehabilitation in the rehab unit. Plan for labs tomorrow, BMP and CBC with differential. MMODL / IJN: [id number] /
[2017-11-08] MEDS: SODIUM CHLORIDE 0.9% 1,000 ML IV SCH (18:10)
--- NOTE | 2017-11-08 19:17 | P.PN ---
Subjective Progress Note Date: 11/08/17 Patient is a 51-year-old man who presented to the hospital with left-sided weakness. The patient has no new complaints today. He continues to experience weakness in his left arm. His left leg is slightly improved in strength. He denied any difficulty swallowing. He denied any numbness or pain. He had an MRI today which showed an acute right basal ganglia infarct. He had a carotid ultrasound which did not show any evidence of stenosis. He had an echocardiogram which showed a severely dilated left atrium. The patient was able to do some physical therapy today. His left arm is flaccid. He is able to move his leg on the left. He denied any prior history of stroke or heart disease. Objective - Vital Signs Vital signs: Vital Signs Temp 97.7 F 11/08/17 15:38 Pulse 73 11/08/17 15:38 Resp 18 11/08/17 15:38 BP 137/99 11/08/17 15:38 Pulse Ox 98 11/08/17 15:38 Intake & Output 11/08/17 11/08/17 11/09/17 06:59 18:59 06:59 Intake Total 550 780 Output Total 725 800 Balance -175 -20 Weight 66 kg Intake: Intake, IV Titration 550 400 Amount Sodium Chloride 0.9% 1, 550 400 000 ml @ 50 mls/hr IV . Q20H IVETH Rx#:[id number] Oral 380 Output: Urine 725 800 Other: # Voids 4 - Constitutional General appearance: Present: cooperative - EENT ENT: Present: hearing grossly normal - Neck Carotids: bilateral: bruit absent - Respiratory Respiratory: bilateral: CTA - Cardiovascular Rhythm: regular Heart sounds: normal: S1, S2 - Neurologic Neurologic Comment(s): Mental status: He was awake alert and oriented he answered questions appropriately there is no aphasia or dysarthria Cranial nerve examination reveals a left upper motor neuron facial weakness Motor examination reveals left magda-paresis. Left upper extremity is 0 /5 left lower extremity is 4/5 Neurologic: Present: CNII-XII intact (Left upper motor neuron facial weakness) - Musculoskeletal Musculoskeletal: Present: left sided weakness - Labs CBC & Chem 7: 11/06/17 13:11 11/07/17 06:19 Assessment and Plan (1) Right-sided lacunar stroke Current Visit: Yes Status: Acute SNOMED Code(s): 575858101 Plan: The patient is a 51-year-old man admitted yesterday with left-sided weakness. His neurologic examination is stable. He continues to have left hemiparesis. Recommend further evaluation with cardiology regarding possible DICKSON. His echocardiogram did show a severely dilated left atrium. Continue PT OT and rehab evaluation and continue aspirin therapy
[2017-11-09 07:10] LABS: Basophils % (A) 1 %; Eosinophils # (A) 0.1 k/uL (0-0.7); Eosinophils % (A) 2 %; HCT 48.2 % (39.0-53.0); Lymphocytes # (A) 1.4 k/uL (1.0-4.8); Lymphocytes % (A) 22 %; MCH 30.7 pg (25.0-35.0); MCHC 31.1 g/dL (31.0-37.0); MCV 98.7 fL (80.0-100.0); Mean Platelet Volume 7.3; Monocytes # (A) 0.5 k/uL (0-1.0); Monocytes % (A) 7 %; Neutrophils # (A) 4.3 k/uL (1.3-7.7); Neutrophils % (A) 66 %; Platelet Count 230 k/uL (150-450); RBC 4.88 m/uL (4.30-5.90); RDW 12.9 % (11.5-15.5); WBC 6.5 k/uL (3.8-10.6)
[2017-11-09 07:32] LABS: Anion Gap 10 mmol/L; Blood Urea Nitrogen 14 mg/dL (9-20); Calcium 9.7 mg/dL (8.4-10.2); Carbon Dioxide 24 mmol/L (22-30); Chloride 103 mmol/L (98-107); Glucose 102 mg/dL (74-99); Magnesium 1.7 mg/dL (1.6-2.3); Potassium 4.8 mmol/L (3.5-5.1); Sodium 137 mmol/L (137-145)
--- NOTE | 2017-11-09 10:57 | P.CRDCN ---
History of Present Illness Consult date: 11/09/17 Requesting physician: Paul Ghosh Reason for Consult (text): Requesting DICKSON Chief complaint: Acute CVA History of present illness: This is a pleasant 51-year-old gentleman with history of hypertension , nicotine dependence, daily EtOH use of approximately 6 beers per day. According to the patient, morning while at work he had an episode of lightheadedness and his left leg felt weak. Shortly thereafter he states that he developed pain in his left calf and left foot, for this reason his posterolateral to the emergency room, he underwent a venous duplex study which was negative for DVT, and patient was discharged home and instructed to follow- up with his primary care doctor in one to 2 days. It was felt that the patient may have cramps in his legs. The following day, in the afternoon, his left arm became extremely numb, and ultimately paralyzed. He also had significant weakness in his left leg although he was still able to walk on it it became more and more weak. This started around 4 5 PM on Wednesday. Patient did not want to come back to the emergency room because he felt as though he was already checked out, so he did delay coming into the ER until the next morning when the symptoms persisted. Patient denies having any visual disturbance, difficulty, but he has significant facial drooping on the left side. Patient was seen in consultation by neurology, initial CT of the brain revealed probable subacute right thalmic infarct. MRI of the brain was performed which revealed acute posterior internal capsule limb right basal ganglion compatible with an acute ischemic area. Chest x-ray revealed mild COPD. EKG shows a normal sinus rhythm with nonspecific ST-T wave changes. Echocardiogram with Doppler study was performed which revealed an ejection fraction of 55-60%, LA is severely dilated. Carotid duplex study did not reveal evidence of hemodynamically significant stenosis in either carotid system. Blood pressure on arrival here 200/117, heart rate 1:30, 99% on room air. Laboratory data, CBC normal, sodium 137, potassium 4.8, BUN 14, creatinine 0.8. Troponin negative. Cholesterol 216, LDL 134, triglycerides 177, HDL 47. Cardiology consultation was requested for DICKSON. Patient was explained to the seizure in detail, as well as the risks and benefits. This will be performed today by Dr. Betts. Past Medical History Past Medical History: Hypertension History of Any Multi-Drug Resistant Organisms: None Reported Past Surgical History: Orthopedic Surgery Additional Past Surgical History / Comment(s): bilateral ankle surgery Past Anesthesia/Blood Transfusion Reactions: No Reported Reaction Past Psychological History: No Psychological Hx Reported Smoking Status: Current every day smoker Past Alcohol Use History: Abuse Additional Past Alcohol Use History / Comment(s): 8 drinks every other day Past Drug Use History: None Reported - Past Family History Mother Family Medical History: CVA/TIA Medications and Allergies Home Medications Medication Instructions Recorded Confirmed Type Acetaminophen [Tylenol Extra 500 - 1,000 mg PO Q6H PRN 11/06/17 11/06/17 History Strength] Allergies Allergy/AdvReac Type Severity Reaction Status Date / Time No Known Allergies Allergy Verified 11/06/17 13:15 Physical Exam Vitals: Vital Signs Temp Pulse Resp BP Pulse Ox 11/09/17 08:00 97.8 F 75 16 133/92 98 11/09/17 04:00 61 18 131/86 96 11/09/17 00:00 64 18 140/87 97 11/08/17 20:00 97.4 F L 68 18 118/71 97 11/08/17 15:38 97.7 F 73 18 137/99 98 11/08/17 12:00 97.8 F 94 18 128/80 94 L Intake and Output 11/08/17 11/09/17 11/09/17 22:59 06:59 14:59 Intake Total 500 600 Output Total 400 400 Balance 100 -400 600 Intake: Intake, IV Titration 400 600 Amount Sodium Chloride 0.9% 1, 400 600 000 ml @ 50 mls/hr IV . Q20H [facility] Rx#:[id number] Oral 100 Output: Urine 400 400 Other: Weight 66.1 kg PHYSICAL EXAMINATION: HEENT: Head is atraumatic, normocephalic. Pupils equal, round. Neck is supple. There is no elevated jugular venous pressure. HEART EXAMINATION: Heart S1, S2 normal. No murmur or gallop heard. CHEST EXAMINATION: Lungs are clear to auscultation and precussion. No chest wall tenderness is noted on palpation or with deep breathing. ABDOMEN: Soft, nontender. Bowel sounds are heard. No organomegaly noted. EXTREMITIES: 2+ peripheral pulses with no evidence of peripheral edema and no calf tenderness noted. NEUROLOGIC patient is awake, alert and oriented -3. Significant left-sided facial droop, left arm paralysis, mild left leg weakness . Results 11/09/17 06:39 11/09/17 06:39 CBC 11/09/17 Range/Units 06:39 WBC 6.5 (3.8-10.6) k/uL RBC 4.88 (4.30-5.90) m/uL Hgb 15.0 (13.0-17.5) gm/dL Hct 48.2 (39.0-53.0) % Plt Count 230 (150-450) k/uL Comprehensive Metabolic Panel 11/09/17 Range/Units 06:39 Sodium 137 (137-145) mmol/L Potassium 4.8 (3.5-5.1) mmol/L Chloride 103 (98-107) mmol/L Carbon Dioxide 24 (22-30) mmol/L BUN 14 (9-20) mg/dL Creatinine 0.83 (0.66-1.25) mg/dL Glucose 102 H (74-99) mg/dL Calcium 9.7 (8.4-10.2) mg/dL Current Medications Generic Name Dose Route Start Last Admin Trade Name Freq PRN Reason Stop Dose Admin Acetaminophen 650 mg 11/06/17 20:47 Tylenol Tab PO Q4HR PRN Fever and/ or Moderate Pain Acetaminophen 325 mg 11/08/17 12:55 Tylenol Tab PO Q6H PRN Mild Pain Aspirin 325 mg 11/07/17 09:00 11/08/17 08:27 Aspirin PO 325 mg DAILY [facility] Administration Atorvastatin Calcium 40 mg 11/08/17 09:00 11/08/17 08:28 Lipitor PO 40 mg DAILY IVETH Administration Sodium Chloride 1,000 mls @ 50 mls/hr 11/06/17 19:45 11/08/17 18:10 Saline 0.9% IV 50 mls/hr .Q20H [facility] Administration Lorazepam 0.5 mg 11/06/17 20:45 Ativan PO Q8HR PRN Agitation Intake and Output 11/08/17 11/09/17 11/09/17 22:59 06:59 14:59 Intake Total 500 600 Output Total 400 400 Balance 100 -400 600 Intake: Intake, IV Titration 400 600 Amount Sodium Chloride 0.9% 1, 400 600 000 ml @ 50 mls/hr IV . Q20H [facility] Rx#:[id number] Oral 100 Output: Urine 400 400 Other: Weight 66.1 kg 11/09/17 06:39 11/09/17 06:39 EKG Interpretations (text) EKG shows a sinus tachycardia with nonspecific ST-T wave changes Assessment and Plan Plan: Assessment and plan #1 acute CVA #2 accelerated hypertension #3 nicotine dependence #4 hyperlipidemia #5 EtOH use, patient drinks approximately 6 beers per day #6 family history of CVA Plan We will perform a transesophageal echocardiographic study on the patient today, the risks and benefits were explained to the patient in detail, he is willing to proceed. This will be performed today by Dr. Betts. Further recommendations will be based on these findings and the patient's clinical course. DNP note has been reviewed, I agree with a documented findings and plan of care. Patient was seen and examined.
[2017-11-09] MEDS ORDERED: fentaNYL (PF) 50 MCG/ML 2 ML AMP ONE (11:41)
[2017-11-09] MEDS ORDERED: MIDAZOLAM 2 MG/2 ML VIAL ONE (11:41)
[2017-11-09] MEDS ORDERED: SODIUM CHLORIDE 0.9% 1,000 ML IV ONE ×2 (11:53→12:19)
[2017-11-09] MEDS: BENZOCAINE SPRAY 1 CAN MUCOUS MEM ONE ×2 (11:57→11:58)
[2017-11-09] MEDS: fentaNYL (PF) 50 MCG/ML 2 ML AMP IVP ONE ×2 (11:58→12:00)
[2017-11-09] MEDS ORDERED: MIDAZOLAM 2 MG/2 ML VIAL IVP ONE ×2 (11:58→12:00)
[2017-11-09] MEDS ORDERED: fentaNYL (PF) 50 MCG/ML 2 ML AMP IVP ONE (11:59)
--- NOTE | 2017-11-09 12:25 | P.TEE ---
Indications for Procedure(s): Rule out Cardec source of emboli Date of Procedure: 11/09/17 Preoperative Diagnosis: CVA Postoperative Diagnosis: No definite cardiac source of emboli noted on this study Description of Procedure(s): INDICATION: CVA. Rule out Cardec source of emboli CONSENT:. Informed consent was obtained from patient PROCEDURE:, Patient was brought to the lab in a fasting state. He was prepped and draped in the usual fashion. The throat was sprayed with Hurricaine. Patient was given IV Versed 3 mg and fentanyl 75 mg for conscious sedation. A lubricated Omni probe was introduced into the esophagus and was advanced into the stomach. Multiple views were obtained. Patient tolerated the procedure well. The duration of the procedure was 17 minutes FINDINGS:. The aortic valve is tricuspid with mild sclerosis and thickening. The left coronary cusp seemed to be less mobile compared to the other 2 cusps. However, there is no significant aortic stenosis or regurgitation. The mitral valve appeared to be normal. The left atrial appendage appeared to be free of any clot. Interatrial septum appeared to be intact. 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 No spontaneous shunt was noted. Injection of the contrast. She' ll mobile ejection did not reveal any crossover of bubbles across the interatrial septum. Left ventricle function appeared to be normal. Aorta showed mild plaque IMPRESSION: #1. No PFO #2. No evidence of any clot in the left atrial appendage #3. Normal left heart function. #4. Mild sclerosis and thickeningof the aortic valve leaflets without any significant stenosis. #4. Mitral valve structure appeared normal without any significant regurgitation PLAN: Find some other source and etiology for CVA. Continue with antiplatelet agents
[2017-11-09] MEDS: SODIUM CHLORIDE 0.9% 1,000 ML IV SCH ×2 (13:01→13:02)
[2017-11-09] MEDS: ASPIRIN 325 MG TAB PO SCH (13:02)
[2017-11-09] MEDS: ATORVASTATIN 40 MG TAB PO SCH (13:02)
--- NOTE | 2017-11-09 15:48 | P.PN ---
Subjective Progress Note Date: 11/09/17 The patient is a 51-year-old man who presented to the hospital with left-sided weakness. The patient states he is doing a little better. He is able to lift his left leg up but against gravity for a longer time today. He is still unable to move his left arm. His swallowing is intact. His speech is intact. He had a DICKSON today which showed no evidence of a thrombus or shunt. Cardiology did recommend continue on antiplatelet agent. The patient has had done noncompliance with his blood pressure medications. The risk factor for this stroke is smoking history. The patient has been evaluated for possible rehab. Objective - Vital Signs Vital signs: Vital Signs Temp 97.8 F 11/09/17 08:00 Pulse 71 11/09/17 12:34 Resp 16 11/09/17 12:34 BP 128/81 11/09/17 12:34 Pulse Ox 96 11/09/17 12:34 Intake & Output 11/08/17 11/09/17 11/09/17 18:59 06:59 18:59 Intake Total 780 1490 Output Total 800 400 Balance -20 -400 1490 Weight 66.1 kg Intake: IV 250 Intake, IV Titration 400 1000 Amount Sodium Chloride 0.9% 1, 400 1000 000 ml @ 50 mls/hr IV . Q20H [facility] Rx#:[id number] Oral 380 240 Output: Urine 800 400 - Constitutional General appearance: Present: average body habitus - EENT Eyes: Present: edentulous ENT: Present: hearing grossly normal - Respiratory Respiratory: bilateral: CTA - Cardiovascular Rhythm: regular - Neurologic Neurologic Comment(s): Neurologic examination mental status: He was awake alert and oriented 3 his speech was fluent there was no a aphasia or dysarthria X Cranial nerve examination reveals a left upper motor neuron facial weakness next Motor examination reveals left arm plegic 0 out of 5 left leg 4+ over 5 - Labs CBC & Chem 7: 11/09/17 06:39 11/09/17 06:39 Labs: Abnormal Lab Results - Last 24 Hours (Table) 11/09/17 Range/Units 06:39 Glucose 102 H (74-99) mg/dL Assessment and Plan (1) Right-sided lacunar stroke Current Visit: Yes Status: Acute SNOMED Code(s): 347893590 Plan: The patient is a 51-year-old man with history of right subcortical stroke with left hemiparesis. He hasn't placed on antiplatelet therapy. He has been neurologically stable and he is a rehab candidate. His some DICKSON did not reveal any cardiac source for his stroke. Recommend continue aspirin.
--- NOTE | 2017-11-09 16:19 | P.CONS ---
History of Present Illness - Chief Complaint Gait disturbance - History of Present Illness I had the opportunity to see patient for inpatient rehab consultation with regard to gait disturbance. He was admitted to [facility] November 06 with acute onset left-sided weakness of 2 days' duration. Seen by Dr. Iman Charles who notes head CT with right thalamic infarct. Carotid duplex negative. Chest x-ray consistent with COPD. MRI demonstrated right sided internal capsule and basal ganglia acute infarct. Seen by cardiology who did perform DICKSON and noted thickening of tricuspid and mitral valves. PT reports moderate assistance functional ability transfers and maximal assistance for gait 30 feet with small- based quad cane. OT reports moderate assistance for upper dressing and maximal assistance for lower dressing and bathing. 2 person moderate assistance for toileting and toilet transfers. Speech therapy notes can sustain concentration. Previous functional history as elicited from patient: 59-year-old right-handed white male who is single lives in a first-floor of 2 floor home with brother. Brother and his [id number] to the cooking, laundry, driving. Patient works full-time at [employer]. Describes in both standing shower gait without device. Drinks at least [address] Ghosh is regular doctor. Family history mother had stroke. Review of Systems Review of systems: ENT: Denies sneezes or discharge. Eyes: Denies discharge or photophobia. Cardiac: Denies chest pain or palpitation. Pulmonary: Denies cough or shortness of breath. Gastrointestinal: Denies nausea, emesis, constipation, diarrhea. Genitourinary: Denies discharge or frequency. Musculoskeletal: Denies muscle or bone aches. Neurologic: Left-sided weakness and numbness. Endocrine: Denies shakes or sweats. Oncology: Denies cancers. Dermatologic: Denies rash, itching, pruritus. ALLERGY/immunology: Denies sneezes, rashes. Past Medical History Past Medical History: Hypertension History of Any Multi-Drug Resistant Organisms: None Reported Past Surgical History: Orthopedic Surgery Additional Past Surgical History / Comment(s): bilateral ankle surgery Past Anesthesia/Blood Transfusion Reactions: No Reported Reaction Past Psychological History: No Psychological Hx Reported Smoking Status: Current every day smoker Past Alcohol Use History: Abuse Additional Past Alcohol Use History / Comment(s): 8 drinks every other day Past Drug Use History: None Reported - Past Family History Mother Family Medical History: CVA/TIA Medications and Allergies Home Medications Medication Instructions Recorded Confirmed Type Acetaminophen [Tylenol Extra 500 - 1,000 mg PO Q6H PRN 11/06/17 11/06/17 History Strength] Allergies Allergy/AdvReac Type Severity Reaction Status Date / Time No Known Allergies Allergy Verified 11/06/17 13:15 Physical Exam Vitals: Vital Signs Temp Pulse Resp BP Pulse Ox 11/09/17 12:34 71 16 128/81 96 11/09/17 11:06 74 14 129/96 96 11/09/17 08:00 97.8 F 75 16 133/92 98 11/09/17 04:00 61 18 131/86 96 11/09/17 00:00 64 18 140/87 97 11/08/17 20:00 97.4 F L 68 18 118/71 97 Intake and Output 11/09/17 11/09/17 11/09/17 06:59 14:59 22:59 Intake Total 1090 400 Output Total 400 Balance -400 1090 400 Intake: IV 250 Intake, IV Titration 600 400 Amount Sodium Chloride 0.9% 1, 600 400 000 ml @ 50 mls/hr IV . Q20H [facility] Rx#:[id number] Oral 240 Output: Urine 400 Other: Weight 66.1 kg Skin: Good color, texture, turgor. General: Medium build and comfortable appearance. Head: Normocephalic, atraumatic. Eyes: Symmetric. Pupils equal round. Ears: Symmetric. Hearing within normal limits. Mouth: Clear. Neck: Supple. Carotid without bruit. Cardiac: Regular rate and rhythm. Lungs: Clear anteriorly and posteriorly. Abdomen: Soft active nontender. Extremities: Normal tone. Neurological: Mental status: Alert, cooperative, pleasant. Cranial nerves: Symmetric facial tone and trapezius. Motor: Normal strength and isolation right arm and leg. Left arm poor and left leg in extension synergy. Sensation: Intact right side and depressed left side. DTRs: Symmetric and equal throughout. Mobility: Sits and stands with assistance. Results CBC & Chem 7: 11/09/17 06:39 11/09/17 06:39 Labs: Abnormal Lab Results - Last 24 Hours (Table) 11/09/17 Range/Units 06:39 Glucose 102 H (74-99) mg/dL Chest x-ray: report reviewed (consistent with COPD.) CT Scan - head: report reviewed (Right thalamic infarct.) MRI - head: report reviewed (Acute right side internal capsule and basal ganglia infarct.) Assessment and Plan (1) Right-sided lacunar stroke Current Visit: Yes Status: Acute Code(s): I63.9 - CEREBRAL INFARCTION, UNSPECIFIED SNOMED Code(s): 728409511 Plan: Impression: 1. Gait disturbance. 2. Acute right internal capsule infarct result in left hemiparesthesias 3 accelerated hypertension 4: Obese Comments and plan: At this time PT, OT, TERRAZZO TILE SETTER ongoing. Safety concerns noted. At this time would anticipate need and benefit of inpatient rehab. Patient seems agreeable.
--- NOTE | 2017-11-09 18:49 | PN ---
PROGRESS NOTE DATE OF SERVICE: 11/09/2017. DATA: Height is 5 feet 9 inches, weight 66.1 kg, BSA 1.81 m2, BMI 21.5 kg/m2. ALLERGIES: Unknown. HISTORY: The patient was admitted to the hospital on the weekend by Dr. Dumont with underlying complete stroke and that stroke was diagnosed as documented by the CT scan of the brain as well as MRI of the brain by the neurologist, Dr. Sherri Jin. The patient found that he had stroke by MRI, present with acute posterior internal capsule limb right basal ganglia, compatible with acute ischemia and symptomatic with right-sided hemiplegia and facial deviation with drooping of the right side of the face and pulled to the left side. The patient, however, was able to speak with slurred speech, but able to continue the sentences. He was able to eat and swallow with no dysphagia, as well as he was able to resist in the left lower extremity with movement of the foot, plantar and dorsiflexion weakness. 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 The patient was seen by rehabilitation/wool batting worker doctor, Dr. Randall. He did indicate that he will need rehabilitation as an inpatient. The consultation is on the chart. The patient also underwent a DICKSON after the echocardiogram, indicating that he has enlarged left atrium and the thought of underlying in appendices of left atrium, small clots can cause the current problem. For that purpose, we consulted Dr. Betts of Cardiology and the patient underwent DICKSON and it was completely clear. The patient is currently on aspirin protocol for the CVA. He has normal sinus rhythm. His pituitary gland was normal. The main issue is posterior limb of internal capsule, right basal ganglia compatible with acute infarction. As per Cardiology, they do not have any restrictions for rehabilitation. His echocardiogram was done, indicating that his ejection fraction is normal with the left atrium severely dilated, more than 4 m2. Otherwise sinus rhythm and mild aortic valve sclerosis, tricuspid regurg. No pulmonary hypertension. His aortic root mildly measured 4.1, and right ventricular size is normal. The ejection fraction is 55% to 60% with left ventricular concentric hypertrophy. The patient was not seen in our office since May of 2015 with noncompliance to medication and to follow up in the office. I did ask the patient why, if he has run out of insurance or any other reason. The patient stated that his mind told him not to see the doctor. The patient was admitted through the emergency room. He was seen earlier on prior to the admission and he came in a second time also. He had the left facial drooping and left arm weakness which started the night before the admission. Two to three days prior to that, he came to the emergency room and they checked his leg because he has some numbness and tingling and at that time they did a Doppler study and it was negative for DVT. His laboratories were essentially negative at the time of presentation. In the ER he had partial paralysis, facial, left arm no movement, no aphasia, with normal sensation. I did not see the available vital signs in the emergency room, but other than that the cranial nerves were intact per the ER physician. PHYSICAL EXAMINATION: On today's exam, the patient vital signs are stable with blood pressure 128/81, pulse 71 per minute, respiratory rate 16 and room air was 96. Mean arterial pressure is 96. HEENT: Head was normocephalic, atraumatic. He had facial deviation to the left with the with the right side of the face drooping. He was able to communicate and speak and able to eat. His left arm, he has to lift it up, no feeling, no sensation and no movement. NECK: Supple. No JVD. No thyromegaly. No lymphadenopathy. Trachea midline. CHEST: Clear to auscultation and percussion with a history of chronic smoker 1 pack for 40 years. Underlying COPD, however, he is nonsymptomatic. HEART: Regular sinus rhythm. No gallop. ABDOMEN: Soft, positive bowel sounds. HEART: PMI in the 5th outside midclavicular line with normal S1, S2. No gallop. ABDOMEN: Soft, nontender, positive bowel sounds. EXTREMITIES: No edema with weakness on the left lower extremity in comparison with the right lower extremity. ASSESSMENT: 1. Acute stroke of the right posterior limb of the internal capsule associated with complete flaccid paralysis of the left upper extremity and left lower extremity with minimal movement. 2. Transesophageal echocardiogram was negative. 3. History of noncompliance with hypertension and hypertensive heart disease. 4. History of hyperlipidemia. 5. History of tobacco use with chronic obstructive pulmonary disease. 6. Currently, the blood pressure is controlled. 7. History of alcohol use and abuse. LABORATORY DATA: His laboratories are stable with white count 6.5, hemoglobin 15, hematocrit 48.2, and electrolytes was normal with a sodium 137, potassium 4.8, chloride 103. His estimated glomerular filtration rate is more than 60 and glucose 102, was 88 before, and the CV was in the average of normal. His lipid profile indicating triglyceride 177, total cholesterol 216 and LDL 134, HDL 47, with the underlying hyperlipidemia. PLAN: Consultation with the wool batting worker, Dr. Tonia MD, and we will check if he will be accepting him tomorrow and will consult the neighborhood planner. I did talk to the nurse personally to call the discharge nurse to evaluate if the patient will be able to be transferred to inpatient rehabilitation at [facility] inpatient rehab. Meanwhile, the patient is on pravastatin for hyperlipidemia, aspirin, and his blood pressure currently is controlled without medication. However, in the future may start to pick out hand when he is in rehabilitation. Currently, he is acute stroke. MMODL / IJN: [id number] /
[2017-11-09 21:58] VITALS: RESP 18
[2017-11-10 05:09] VITALS: BP 135/89; PULSE 68; TEMP 97
[2017-11-10] MEDS: SODIUM CHLORIDE 0.9% 1,000 ML IV SCH ×2 (05:44→05:45)
[2017-11-10] MEDS: ATORVASTATIN 40 MG TAB PO SCH (08:16)
[2017-11-10] MEDS: ASPIRIN 325 MG TAB PO SCH (08:16)
--- NOTE | 2017-11-10 12:23 | DS ---
DISCHARGE SUMMARY He is a 51-year-old white male. NEW DATA: Height 5 feet 9 inches, weight 67 kg, BSA 1.82 meter square, BMI 21.8 kg per meter square. ALLERGIES: Allergy is unknown. FINAL DIAGNOSES: 1. Acute cerebrovascular accident ischemic with the underlying acute posterior internal capsule limb of the right basal ganglion, ischemic in nature. 2. Status post transesophageal echocardiogram done by Dr. Betts with no evidence of emboli, normal left heart function, normal mitral valve and aortic valve without stenosis. The patient on aspirin and antiplatelets. 3. Hypertension and hypertensive heart disease, currently on discharge normotensive. 4. Hyperlipidemia, currently on atorvastatin for elevated lipid profile. 5. History of nicotine use and chronic obstructive pulmonary disease not symptomatic. 6. History of alcohol use, no delirium tremens. Consultation with Cardiology and Neurology. The cardiology doctor, Dr. Betts and neurologist, Dr. Sherri Jin and physical therapy, Dr. Jacky Randall. DISPOSITION: Transferred to [facility]. The patient's presentation to the ER with numbness and not able to use his left upper extremity and weakness of the left lower extremity. With the CT scan and MRI, found to have the acute stroke. The patient, however, able to communicate, able to eat and able to use quad cane to the bathroom. He is no aspiration, no dysphagia and left upper extremity complete paralysis with no activity, left lower extremity ability of movement and even elevation but still weak, need further rehabilitation. Patient admitted to the floor with the consulting physician and with the echocardiogram was normal systolic function, however, mentioned that the left atrium was enlarged and we had a suspicion of embolism. We did do the DICKSON with consultation with the cardiology, Dr. Betts, and patient found no evidence of embolization and consultation with Dr. Jacky Randall the nutrition professor who felt that patient needs also the rehabilitation and will be transferred today to [facility]. The patient's currently [id number] examination on the discharge indicating that his vital signs are stable with his temperature 97, pulse rate 68 per minute, respiratory rate 18, blood pressure 135/89 with a mean 104, on room air oxygen 98%. On HEENT, the head was normocephalic and atraumatic. His pupils is equal, reactive and he has facial deviation to the left with the right side drooping and angle of the mouth and nasolabial fold was still flat. He had also impaired speech secondary to the facial abnormalities. The neck was supple. No JVD. No thyromegaly. No lymphadenopathy. The carotid ultrasound indicating that there was no hemodynamic significant stenosis. The chest was clear to auscultation and percussion with increased anteroposterior diameter with hyperinflation probably with the smoking a pack per day for 40 years. Heart, PMI in the 5th outside midclavicular line. Normal S1, S2. No gallop. The abdomen was soft, nontender, positive bowel sounds. He is able to control his urine and bowel movement. His extremities was perfused with normal pulses and he has no edema of the lower extremities. With the assessment, the patient is stable general condition to be transferred to inpatient rehab at [facility] under care of Dr. Randall. MMIVAN / DULCE: [id number] /
== END 2017-11-10 15:20 | disposition still patient (30) | DRG 65 ==
LOC: EC 12:54 → 6SEL 16:26
PROVIDERS: ADMIT Internal Medicine; ATTEND Internal Medicine
PROC: B246ZZ4 Ultrasonography of Right and Left Heart, Transesophageal (ICD-10-PCS; principal; 2017-11-09 11:46)
DX: I63.9 Cerebral infarction, unspecified (principal); G81.94 Hemiplegia, unspecified affecting left nondominant side; I11.9 Hypertensive heart disease without heart failure; E66.9 Obesity, unspecified; E78.5 Hyperlipidemia, unspecified; F10.10 Alcohol abuse, uncomplicated; F17.210 Nicotine dependence, cigarettes, uncomplicated; I08.2 Rheumatic disorders of both aortic and tricuspid valves; J44.9 Chronic obstructive pulmonary disease, unspecified; Z79.82 Long term (current) use of aspirin; Z82.3 Family history of stroke; Z82.49 Family history of ischemic heart disease and other diseases of the circulatory system; Z91.14 Patient's other noncompliance with medication regimen; Z91.19 Patient's noncompliance with other medical treatment and regimen
CPT/HCPCS: 36415; 70450; 70551; 71046; 80048; 80053; 80061; 82550; 82553; 83735; 84484; 85025; 85610; 85730; 93005; 93306; 93312; 93880; 94760; 96360; 96361; 99291